=== PATIENT | female | born 2000 | race Caucasian/White ===

== ENCOUNTER 2018-06-19 14:28 | Emergency (ER) | payer OTHER ==
[2018-06-19 15:22] VITALS: BP 107/67
[2018-06-19] MEDS ORDERED: Ketorolac INJ* 60 MG/2 ML VIAL IM ONE (15:47)
--- NOTE | 2018-06-19 15:57 | ED ---
Headache - HPI Summary HPI Summary: patient developed headache several days ago and symtoms have been unrelieved with motrin, patient has persistent nausea with the headache, and photophobia - History Of Current Complaint Chief Complaint: UCGeneralIllness Stated Complaint: MIGRAINES,EYE/NECK/ARM PAIN Time Seen by Provider: 06/19/18 15:45 Hx Last Menstrual Period: 06/12/18 Onset/Duration: Gradual Onset, Started days ago Initially Headache Was: Moderate Currently Pain Is: Current Pain Scale(0-10)=, Moderate Timing: Constant, Hours Character: Sharp Location of Headache: Diffuse, Frontal Aggravating Factor: Bright Lights Allevating Factors: Rest Associated Signs And Symptoms: Nausea, Visual Changes - Allergies/Home Medications Allergies/Adverse Reactions: Allergies Allergy/AdvReac Type Severity Reaction Status Date / Time Penicillins Allergy Unknown Verified 06/19/18 15:22 Reaction Details Home Medications: Home Medications Ibuprofen TAB* [Motrin TAB* 600 MG] 600 mg PO Q8H PRN 06/19/18 [History Confirmed 06/19/18] PMH/Surg Hx/FS Hx/Imm Hx Previously Healthy: Yes Infectious Disease History: No Infectious Disease History: Denies: Traveled Outside the [place] in Last 30 Days - Social History Alcohol Use: Occasionally Substance Use Type: Reports: Marijuana Smoking Status (MU): Never Smoked Tobacco Review of Systems Constitutional: Negative Positive: Photophobia ENT: Negative Cardiovascular: Negative Respiratory: Negative Gastrointestinal: Negative Genitourinary: Negative Musculoskeletal: Negative Skin: Negative Neurological: Other Positive: Paresthesia Psychological: Normal All Other Systems Reviewed And Are Negative: Yes Physical Exam Triage Information Reviewed: Yes Vital Signs On Initial Exam: Initial Vitals Temp Pulse Resp BP Pulse Ox 37.4 C 69 16 107/67 100 06/19/18 15:11 06/19/18 15:11 06/19/18 15:11 06/19/18 15:11 06/19/18 15:11 Vital Signs Reviewed: Yes Appearance: Positive: Well-Appearing Skin: Positive: Warm Head/Face: Positive: Normal Head/Face Inspection Eyes: Positive: Normal, Other: - normal optic fundi ENT: Positive: Normal ENT inspection Neck: Positive: Supple Respiratory/Lung Sounds: Positive: Clear to Auscultation Cardiovascular: Positive: Normal Abdomen Description: Positive: Nontender Bowel Sounds: Positive: Present Musculoskeletal: Positive: Normal Neurological: Positive: Normal, Sensory/Motor Intact, Alert, Oriented to Person Place, Time, CN Intact II-III, Reflexes Intact, Normal Gait, Finger to Nose Psychiatric: Positive: Normal - Alistair Coma Scale Best Motor Response: 6 - Obeys Commands Best Verbal Response: 5 - Oriented Diagnostics - Vital Signs Vital Signs Temp Pulse Resp BP Pulse Ox 06/19/18 15:11 37.4 C 69 16 107/67 100 - Laboratory Lab Statement: Any lab studies that have been ordered have been reviewed, and results considered in the medical decision making process. Headache Course/Dx - Diagnoses Provider Diagnoses: Migraine Discharge - Sign-Out/Discharge Documenting (check all that apply): Patient Departure - discharged to home All imaging exams completed and their final reports reviewed: Yes - Discharge Plan Condition: Good Disposition: HOME Prescriptions: SUMAtriptan TAB* [Imitrex TAB*] 100 mg PO SEE INSTRUCTIONS #12 tab Patient Education Materials: Migraine Headache (ED) Forms: *Work Release Referrals: No Primary Care Phys,NOPCP [Primary Care Provider] - - Billing Disposition and Condition Condition: GOOD Disposition: Home
--- NOTE | 2018-06-19 16:12 | RAD ---
Indication: Recurrent headaches. CT of the brain performed without IV contrast. Ventricular structures are midline. No midline shift is noted. The extra-axial spaces are unremarkable. There is no evidence of intracranial mass or hemorrhage. No other high or low density lesions are identified. Mastoid air cells and paranasal sinuses are otherwise unremarkable. IMPRESSION: There is no intracranial mass or hemorrhage noted.
== END 2018-06-19 17:03 | disposition home or self-care (01) ==
LOC: UCCORT 14:28
DX: G43.909 Migraine, unspecified, not intractable, without status migrainosus (principal); Z88.0 Allergy status to penicillin
CPT/HCPCS: 70450; 93005; 96372; 99202; G0463; J1885

== ENCOUNTER 2018-06-29 11:53 | Emergency (ER) | payer OTHER ==
[2018-06-29 12:16] VITALS: BP 129/58
--- NOTE | 2018-06-29 12:38 | UC ---
UC General HPI - HPI Summary HPI Summary: Patient is complaining of sore throat for the past 3 days. She also has a cough and some fatigue. A close friend was just diagnosed with mono and patient is concerned she may have mono as well. She denies any associated fever or abdominal pain. - History of Current Complaint Chief Complaint: UCGeneralIllness Stated Complaint: SORE THROAT Time Seen by Provider: 06/29/18 12:25 Hx Obtained From: Patient Hx Last Menstrual Period: 06/12/18 Onset/Duration: Gradual Onset Timing: Constant Pain Intensity: 2 Alleviating: Nothing Associated Signs & Symptoms: Positive: Cough. Negative: Abdominal Pain, Fever - Allergy/Home Medications Allergies/Adverse Reactions: Allergies Allergy/AdvReac Type Severity Reaction Status Date / Time Penicillins Allergy Unknown Verified 06/29/18 12:16 Reaction Details PMH/Surg Hx/FS Hx/Imm Hx Neurological History: Migraine - Surgical History Surgical History: None - Family History Known Family History: Positive: None - Social History Occupation: Student Lives: Dormitory/Roommates Alcohol Use: Occasionally Substance Use Type: Marijuana Smoking Status (MU): Never Smoked Tobacco - Immunization History Hx Tetanus, Diphtheria Vaccination: Yes Vaccination Up to Date: Yes Review of Systems Constitutional: Fatigue Skin: Negative Eyes: Negative ENT: Sore Throat Respiratory: Cough Cardiovascular: Negative Gastrointestinal: Negative Genitourinary: Negative Motor: Negative Neurovascular: Negative Musculoskeletal: Negative Neurological: Negative Psychological: Negative Is Patient Immunocompromised?: No All Other Systems Reviewed And Are Negative: Yes Physical Exam Triage Information Reviewed: Yes Appearance: Well-Appearing Vital Signs: Initial Vital Signs Temp 98.6 F 06/29/18 12:11 Pulse 97 06/29/18 12:11 Resp 18 06/29/18 12:11 BP 129/58 06/29/18 12:11 Pulse Ox 100 06/29/18 12:11 Eyes: Positive: Conjunctiva Clear ENT: Positive: Pharyngeal erythema, TMs normal, Uvula midline. Negative: Nasal congestion, Nasal drainage, Trismus, Muffled voice, Hoarse voice Neck: Positive: Supple, Nontender, Enlarged Nodes @ - Peritonsillar Respiratory: Positive: Lungs clear, Normal breath sounds Cardiovascular: Positive: RRR, No Murmur Abdomen Description: Positive: Nontender, No Organomegaly, Soft Bowel Sounds: Positive: Present Musculoskeletal: Positive: ROM Intact Neurological: Positive: Alert Psychological: Positive: Age Appropriate Behavior Skin Exam: Normal Diagnostics - Laboratory ABG Interpretation: CBC WITH DIFF AND MONO ARE PENDING. RAPID STREP=NEG Course/Dx - Course Course Of Treatment: RAPID STREP=NEG, R/O MONO. WILL RESTRICT SPORT UNTIL CLEARED/MONO EXCLUDED. PT ADVISED OF RISK FOR FALSE NEG MONO TEST EARLY ON IN THE ILLNESS. - Differential Dx - Multi-Symptom Provider Diagnoses: PHARYNGITIS. FATIGUE Discharge - Sign-Out/Discharge Documenting (check all that apply): Patient Departure All imaging exams completed and their final reports reviewed: No Studies - Discharge Plan Condition: Stable Disposition: HOME Patient Education Materials: Mononucleosis (ED), Fatigue (ED) Forms: *Physical Education Release Referrals: [facility] [Outside] - 5 Days Additional Instructions: DIAGNOSIS: PHARYNGITIS, FATIGUE, RULE OUT MONO - Billing Disposition and Condition Condition: STABLE Disposition: Home - Attestation Statements Provider Attestation: I was available for consult. This patient was seen by the KLEBER. The patient was not presented to, seen by, or examined by me. -Shima
[2018-06-30 14:26] LABS: ABS Basophils 0 10^3/ul (0-0.2); ABS Eosinophils 0.1 10^3/ul (0-0.6); ABS Lymphocytes 1.4 10^3/ul (1.0-4.8); ABS Monocytes 0.7 10^3/ul (0-0.8); ABS Nucleated RBC 0 10^3/ul; Hematocrit 39 % (35-47); Hemoglobin 13.3 g/dl (12.0-16.0); Lymphocyte % 15.4 % (25-47); Mean Corpuscular HGB Conc 34 g/dl (31-36); Mean Corpuscular Hemoglobin 30 pg (27-31); Mean Corpuscular Volume 88 fL (80-97); Mean Platelet Volume 9.3 um3 (7.4-10.4); Nucleated Red Blood Cells % 0.5; Platelet Count 179 10^3/ul (150-450); Red Blood Count 4.45 10^6/ul (4.00-5.40); Red Cell Distribution Width 13 % (10.5-15); White Blood Count 9.2 10^3/ul (3.5-10.8)
== END 2018-06-29 13:22 | disposition home or self-care (01) ==
LOC: UCCORT 11:53
DX: J02.9 Acute pharyngitis, unspecified (principal); R53.83 Other fatigue; Z88.0 Allergy status to penicillin
CPT/HCPCS: 36415; 85025; 86308; 86664; 86665; 87651; 99211; G0463

== ENCOUNTER 2018-12-15 16:55 | Emergency (ER) | payer OTHER ==
[2018-12-15 17:10] VITALS: BP 118/76
--- NOTE | 2018-12-15 17:31 | UC ---
Abdominal Pain Female HPI - HPI Summary HPI Summary: Patient is a 18 year old woman , who present today to the urgent care with left lower abdominal pain for past 2 weeks. Pain is localized in the left lower quadrant and also reports some epigastric pain. There is associated nausea and vomiting. She reports having emesis almost every day in the morning, it's yellow bilious and not bloody. Has some cough as well Denies any new food, Fevers or chills. She also reports having constipation, last bowel movement was yesterday. Denies any blood in stools. No urinary or vaginal symptoms. Last menstrual period started today She tolerates by mouth well but that increases her pain. She also reports having some hot flashes and palpitations intermittently some associated to shortness of breath but denies any chest pain. No shortness of breath or chest pain right now . She has tried [id number] Tums without much relief - History of Current Complaint Chief Complaint: UCAbdominalPain Stated Complaint: SOB,LT SIDED ABD PAIN X 2 WEEKS Time Seen by Provider: 12/15/18 17:27 Hx Obtained From: Patient Hx Last Menstrual Period: 12/15/18 ?: No Pain Intensity: 6 Allergies/Adverse Reactions: Allergies Allergy/AdvReac Type Severity Reaction Status Date / Time Penicillins Allergy Rash Verified 12/15/18 17:10 Home Medications: Home Medications Lactase [Lactaid Fast Act] 9,000 unit PO DAILY 12/15/18 [History Confirmed 12/15] PMH/Surg Hx/FS Hx/Imm Hx - Additional Past Medical History Additional PMH: Migraine on Imitrex Previously Healthy: Yes - Surgical History Surgical History: None - Family History Known Family History: Positive: None - Social History Alcohol Use: Occasionally Substance Use Type: Marijuana Substance Use Comment - Amount & Last Used: daily Smoking Status (MU): Never Smoked Tobacco - Immunization History Hx Tetanus, Diphtheria Vaccination: Yes Vaccination Up to Date: Yes Review of Systems All Other Systems Reviewed And Are Negative: Yes Constitutional: Positive: Negative Skin: Positive: Negative Eyes: Positive: Negative ENT: Positive: Negative Respiratory: Positive: Cough Cardiovascular: Positive: Palpitations Gastrointestinal: Positive: Abdominal Pain, Vomiting, Other - Constipation Genitourinary: Positive: Negative Motor: Positive: Negative Neurovascular: Positive: Negative Musculoskeletal: Positive: Negative Neurological: Positive: Negative Psychological: Positive: Negative Is Patient Immunocompromised?: No Physical Exam - Summary Physical Exam Summary: Physical Exam: Const: Appears well. No signs of apparent distress present. Alert and oriented x 3. Musculo: Walks with a normal gait. Head/Face: Atraumatic, normocephalic on inspection. Eyes: EOMI and PERRLA in both eyes. Conjunctivae clear. No discharge noted ENT: Hearing normal Respiratory: Respirations are unlabored. Lungs clear to auscultation bilaterally, no wheezing , rhonchi or rales noted . CVS: Regular rate and Rhythm, S1S2 normal , no murmurs identified. Extremities: Peripheral circulation is grossly normal. Pulses 2+ Abdomen : Soft , there is tenderness to palpation noted in the left lower quadrant and also in the epigastric area , nondistended , Bowel sounds present and appear to be slightly hyperkinetic. No guarding , rebound tenderness or rigidity noted. Skin: No lesions or rash located on the upper extremities or on the lower extremities. Neuro: Cranial nerves II to XII intact, motor and sensory intact. DTR Intact bilaterally. Mood is normal. Affect is normal. Triage Information Reviewed: Yes Vital Signs: Initial Vital Signs Temp 98.6 F 12/15/18 16:59 Pulse 80 12/15/18 16:59 Resp 16 12/15/18 16:59 BP 118/76 12/15/18 16:59 Pulse Ox 100 12/15/18 16:59 Vital Signs Reviewed: Yes Abd Pain Female Course/Dx - Course Course Of Treatment: During the visit today, we discussed the findings which appeared to be consistent with gastroenteritis, possibility of an ovarian cyst on the left side cannot be completely ruled out. She was given 1 dose of Zofran and famotidine here. Patient needs additional testing, thus ER transfer advised and patient agrees. Report called to the ER provider (Dr. Radha MD) at [facility], advised provider of the history, physical examination , and duration of illness so far and the need imaging. Patient expressed understanding . Her friend will drive her in a private car. Vitals stable at the time of transfer - Differential Dx/Diagnosis Provider Diagnosis: Gastroenteritis, Ovarian cyst Discharge - Sign-Out/Discharge Documenting (check all that apply): Patient Departure All imaging exams completed and their final reports reviewed: No Studies - Discharge Plan Condition: Stable Disposition: HOME-RECOMMEND TO ED Patient Education Materials: Ovarian Cyst (ED), Gastroenteritis (ED) Referrals: No Primary Care Phys,NOPCP [Primary Care Provider] - Additional Instructions: Patient needs additional testing, thus ER transfer advised and patient agrees. Report called to the ER provider (Dr. Radha MD)at [facility] - Billing Disposition and Condition Condition: STABLE Disposition: Home-Recommend to ED
[2018-12-15] MEDS ORDERED: Famotidine TAB* 20 MG PO ONE (18:02)
[2018-12-15] MEDS: Ondansetron ODT TAB* 4 MG PO ONE (18:19)
== END 2018-12-15 18:23 | disposition home health service (06) ==
LOC: UCCORT 16:55
DX: K52.9 Noninfective gastroenteritis and colitis, unspecified (principal); N83.209 Unspecified ovarian cyst, unspecified side; Z88.0 Allergy status to penicillin
CPT/HCPCS: 99212; A9270-GY; G0463

== ENCOUNTER 2018-12-15 19:06 | Emergency (ER) | payer OTHER ==
--- NOTE | 2018-12-15 20:33 | ED ---
Abdominal Pain/Female - HPI Summary HPI Summary: This patient is a 18 year old F driven via private car by her partner presenting to [facility] with a chief complaint of LLQ pain since two weeks ago. She says it started with SOB. She states she reports an constant dull LLQ pain, nausea and vomited every morning when she wakes up. She denies dysuria. She states her pain worsens after she urinates. She is currently not taking any medication. She rates her pain 6/10 in severity. Eating makes her pain worse and induces vomiting. She took ibuprofen a couple days ago and it did not help. Her LNMP started today. She states she is not taking control. She also reports intermittent hot flashes. She reports black spots in her vomit but thinks it is likely due to the coffee that she drinks every morning. Her last BM was yesterday and states it was diarrhea. Her last normal BM was weeks ago. She denies FHx of ovarian cyst. Patient is a daily marijuana user and used this morning. Patient declines pain medication at this time. Patient was passing flatus. Her blood pressure in room is 116/74. - History of Current Complaint Chief Complaint: EDAbdPain Stated Complaint: STOMACH PAINS PER PT Hx Obtained From: Patient, Family/Advertising Designer - Partner Hx Last Menstrual Period: 12/15/18 Onset/Duration: Lasting Weeks, Still Present Timing: Constant Severity Initially: Moderate Severity Currently: Moderate Pain Intensity: 6 Pain Scale Used: 0-10 Numeric Location: Discrete At: LLQ Character: Dull Aggravating Factor(s): Food, Movement Associated Signs and Symptoms: Positive: Nausea, Vomiting Allergies/Adverse Reactions: Allergies Allergy/AdvReac Type Severity Reaction Status Date / Time Penicillins Allergy Rash Verified 12/15/18 19:12 PMH/Surg Hx/FS Hx/Imm Hx Endocrine/Hematology History: Denies: Hx Diabetes Cardiovascular History: Denies: Hx Coronary Artery Disease Respiratory History: Denies: Hx Asthma Infectious Disease History: No Infectious Disease History: Denies: Traveled Outside the [place] in Last 30 Days - Family History Known Family History: Positive: Cardiac Disease - AFIB father Negative: Hypertension, Diabetes - Social History Alcohol Use: Occasionally Substance Use Type: Reports: Marijuana - Daily Substance Use Comment - Amount & Last Used: daily Smoking Status (MU): Never Smoked Tobacco Review of Systems Constitutional: Other - Intermittent hot flashes Positive: Shortness Of Breath Positive: Abdominal Pain, Vomiting, Diarrhea, Nausea Negative: dysuria All Other Systems Reviewed And Are Negative: Yes Physical Exam - Summary Physical Exam Summary: Appearance: Ill-appearing, moderate pain distress, well-nourished Skin: Warm, color reflects adequate perfusion, dry Head: Normal Head/Face inspection, atraumatic Eyes: Conjunctiva clear ENT: Normal inspection Neck: Supple, no nodes, no JVD Respiratory: Lungs clear, normal breath sounds, no respiratory distress Cardio: RRR, No murmur, pulses normal, brisk capillary refill Abdomen: Soft, minimal tenderness LLQ. no rebound, no guarding, no masses, non- distended Bowel sounds: Present Musculoskeletal: Strength Intact/ROM intact, no calf tenderness, no edema. Psychological: Normal Neuro: Alert, muscle tone normal, no focal deficit Rectal: Bunch Trimmer Mold Shelly present. No external hemorrhoids, non-painful exam. Hard brown stool, no blood. Triage Information Reviewed: Yes Vital Signs On Initial Exam: Initial Vitals Temp Pulse Resp BP Pulse Ox 98.4 F 72 18 122/74 98 12/15/18 19:11 12/15/18 19:11 12/15/18 19:11 12/15/18 19:11 12/15/18 19:11 Vital Signs Reviewed: Yes Diagnostics - Vital Signs Vital Signs Temp Pulse Resp BP Pulse Ox 12/15/18 19:11 98.4 F 72 18 122/74 98 - Laboratory Lab Statement: Any lab studies that have been ordered have been reviewed, and results considered in the medical decision making process. - Ultrasound No standard instances Ultrasound Interpretation Completed By: Radiologist Summary of Ultrasound Findings: Pelvic U/S: Sonographically normal uterus and ovaries. ED Provider has reviewed this report. Re-Evaluation - Re-Evaluation First Eval Re-Evaluation Time: 21:52 Abdominal Pain Fem Course/Dx - Course Course Of Treatment: This patient is a 18 year old F driven via private car by her partner presenting to [facility] with a chief complaint of LLQ pain since two weeks ago. Pt medications reviewed this visit. Nurses note reviewed. Allergies noted. Bloodwork and urinalysis revealed Magnesium 1.7 L, Total Bilirubin 1.20 H, Amylase 22L, Ur Specific [place] 1.009 :, Urine Blood 3+ A, Ur Squamous Epith Cells Present A, Urine Bacteria 1+ A. Dr. Smiley discussed risks of radiation exposure with patient and performed intial exam to prevent exposure. Pelvic U/S revealed sonographically normal uterus and ovaries. Abdomen/KUB revealed large amount of stool, no air fluid levels, no urolithiasis or nephrolithiasis. - Diagnoses Provider Diagnoses: LLQ abdominal pain, Vomiting, Microscopic hematuria, Hypomagnesemia, Gilbert's syndrome Discharge - Discharge Plan Forms: *School Release Referrals: [facility] [Outside] - Attestation Statements Document Initiated by Scribe: Yes Documenting Scribe: Joseph Myers Provider For Whom Scribe is Documenting (Include Credential): Maria Guadalupe Smiley MD Scribe Attestation: Joseph Love, scribed for Maria Guadalupe Smiley MD on 12/15/18 at 205. Status of Scribe Document: Ready
[2018-12-15] MEDS ORDERED: NS 0.9% 1000 ML** 2,000 ML IV ONE (20:44)
[2018-12-15 20:59] LABS: ABS Basophils 0 10^3/ul (0-0.2); ABS Eosinophils 0.2 10^3/ul (0-0.6); ABS Monocytes 0.5 10^3/ul (0-0.8); ABS Neutrophils 6.1 10^3/ul (1.5-7.7); ABS Nucleated RBC 0 10^3/ul; Hematocrit 41 % (35-47); Hemoglobin 13.9 g/dl (12.0-16.0); Lymphocyte % 23.2 %; Mean Corpuscular HGB Conc 34 g/dl (31-36); Mean Corpuscular Hemoglobin 30 pg (27-31); Mean Corpuscular Volume 88 fL (80-97); Mean Platelet Volume 7.7 fL (7.4-10.4); Nucleated Red Blood Cells % 0.1; Platelet Count 233 10^3/ul (150-450); Red Blood Count 4.66 10^6/ul (4.00-5.40); Red Cell Distribution Width 12 % (10.5-15); White Blood Count 8.8 10^3/ul (3.5-10.8)
[2018-12-15 21:02] LABS: Urine Appearance Cloudy; Urine Bacteria 1+ (Absent); Urine Bilirubin Negative (Negative); Urine Blood 3+ (Negative); Urine Color Yellow; Urine Glucose Negative (Negative); Urine Ketones Negative (Negative); Urine Nitrite Negative (Negative); Urine Protein Negative (Negative); Urine Red Blood Cell Trace(0-2/hpf) (Absent); Urine Specific Gravity 1.009 (1.010-1.030); Urine Squamous Epithelial Cell Present (Absent); Urine Urobilinogen Negative (Negative); Urine White Blood Cell Trace(0-5/hpf) (Absent)
[2018-12-15 21:05] LABS: Activated Partial Thrombo Time 33.9 seconds (26.0-36.3); INR 0.91 (0.77-1.02)
[2018-12-15 21:14] LABS: ALT 8 U/L (7-52); AST 13 U/L (13-39); Albumin 4.4 g/dL (3.2-5.2); Albumin/Globulin Ratio 1.8 (1-3); Alkaline Phosphatase 51 U/L (34-104); Amylase 22 U/L (29-103); Anion Gap 6 mmol/L (2-11); BUN/Creatinine Ratio 9.4 (8-20); Blood Urea Nitrogen 8 mg/dL (6-24); C Reactive Protein < 1.00 mg/L (<8.01); CO2 Carbon Dioxide 27 mmol/L (22-32); Calcium 9.3 mg/dL (8.6-10.3); Chloride 106 mmol/L (101-111); EGFR African American 103.2 (>60); EGFR Non-African American 85.3 (>60); Globulin 2.5 g/dL (2-4); Glucose 86 mg/dL (70-100); Magnesium 1.7 mg/dL (1.9-2.7); Potassium 4.2 mmol/L (3.5-5.0); Sodium 139 mmol/L (135-145); Total Protein 6.9 g/dL (6.4-8.9)
[2018-12-15 21:20] LABS: HCG Pregnancy < 0.60 mIU/mL
[2018-12-15 21:54] LABS: Barbiturates Urine Screen None Detected (None Detect); Benzodiazepine Urine Screen None Detected (None Detect); Urine Cannabinoids Screen Presumptive Positive (None Detect)
[2018-12-15] MEDS ORDERED: Magnesium Oxide TAB* 400 MG PO ONE (22:02)
[2018-12-15] MEDS ORDERED: diPHENhydraMINE IV* 50 MG/ML 1 ml VIAL (BENADRYL) IV ONE (22:37)
[2018-12-15] MEDS ORDERED: Ketorolac INJ* 30 MG/ML 1 ML VIAL IV PUSH ONE (22:40)
[2018-12-15] MEDS ORDERED: Metoclopramide IV* 5 MG/ML 2 ML VIAL IV ONE (22:40)
[2018-12-15] MEDS ORDERED: Magnesium Sulfate 1 GM IV* 1 GM/100 ML BAG IV ONE (22:53)
[2018-12-15 23:14] VITALS: BP 0/0
== END 2018-12-15 23:13 | disposition home or self-care (01) ==
LOC: ED 19:06
DX: R10.32 Left lower quadrant pain (principal); R11.10 Vomiting, unspecified; R31.29 Other microscopic hematuria; E83.42 Hypomagnesemia; E80.4 Gilbert syndrome
CPT/HCPCS: 36415; 74018; 76856; 80053; 80307; 81003; 81015; 82150; 82272; 83605; 83690; 83735; 84702; 85025; 85610; 85730; 86140; 87086; 96360; 96361; 99282

== ENCOUNTER 2019-07-07 19:44 | Emergency (ER) | payer OTHER ==
[2019-07-07 19:58] VITALS: BP 115/70
[2019-07-07] MEDS ORDERED: Ondansetron ODT TAB* 4 MG PO ONE (20:12)
[2019-07-07] MEDS ORDERED: Ketorolac *IM* INJ* 60 MG/2 ML VIAL IM ONE (20:13)
--- NOTE | 2019-07-07 20:17 | UC ---
Headache HPI - HPI Summary HPI Summary: 18-year-old female comes in with a chief complaint of migraine. Started several hours ago. She's had the same type of migraines ever since she was in seventh grade. She the pain is worse behind the left eye and it does cause some vision change the left eye which is typical with her migraines. She also gets nauseous and vomits. Usually she can take ibuprofen and rest in a dark room and get better however this time she took the ibuprofen and threw it up. The headache continues the nausea vomiting continues. She also gets bilateral hand numbness and hyperventilation. No fevers no chills. Has not been ill with infection. - History Of Current Complaint Chief Complaint: UCHeadache Stated Complaint: MIGRAINE, ARM PAIN Time Seen by Provider: 07/07/19 20:05 Hx Last Menstrual Period: 2 weeks ago Pain Intensity: 9 - Allergies/Home Medications Allergies/Adverse Reactions: Allergies Allergy/AdvReac Type Severity Reaction Status Date / Time Penicillins Allergy Rash Verified 07/07/19 19:47 Home Medications: Home Medications NK [No Home Medications Reported] 07/07/19 [History Confirmed 07/07/19] PMH/Surg Hx/FS Hx/Imm Hx Previously Healthy: Yes Neurological History: Migraine - Surgical History Surgical History: None - Family History Known Family History: Positive: None, Cardiac Disease - AFIB father Negative: Hypertension, Diabetes - Social History Alcohol Use: None Substance Use Type: None Substance Use Comment - Amount & Last Used: daily Smoking Status (MU): Never Smoked Tobacco - Immunization History Hx Tetanus, Diphtheria Vaccination: Yes Vaccination Up to Date: Yes Review of Systems All Other Systems Reviewed And Are Negative: Yes Constitutional: Positive: Other - see hpi Skin: Positive: Negative Eyes: Positive: Other - see hpi ENT: Positive: Negative Respiratory: Positive: Negative Cardiovascular: Positive: Negative Gastrointestinal: Positive: Vomiting, Nausea Motor: Positive: Negative Neurovascular: Positive: Negative Musculoskeletal: Positive: Negative Neurological: Positive: Headache Psychological: Positive: Negative Is Patient Immunocompromised?: No Physical Exam Triage Information Reviewed: Yes Appearance: Well-Nourished, Ill-Appearing - mild, Pain Distress - mild Vital Signs: Initial Vital Signs Temp 97.2 F 07/07/19 19:48 Pulse 100 07/07/19 19:48 Resp 18 07/07/19 19:48 BP 115/70 07/07/19 19:48 Pulse Ox 100 07/07/19 19:48 Vital Signs Reviewed: Yes Eye Exam: Normal Eyes: Positive: Conjunctiva Clear ENT: Positive: Pharynx normal Neck: Positive: Supple Respiratory: Positive: No respiratory distress Musculoskeletal: Positive: Strength Intact, ROM Intact Neurological: Positive: Alert, Muscle Tone Normal Psychological: Positive: Age Appropriate Behavior Skin Exam: Normal Headache Course/Dx - Differential Dx/Diagnosis Provider Diagnosis: Migraine Discharge ED - Sign-Out/Discharge Documenting (check all that apply): Patient Departure All imaging exams completed and their final reports reviewed: No Studies - Discharge Plan Condition: Stable Disposition: HOME-RECOMMEND TO ED Patient Education Materials: Migraine Headache (ED) [facility]] Kaiser Pickard MD [Medical Doctor] - Additional Instructions: GO DIRECTLY TO THE EMERGENCY DEPARTMENT FOR FURTHER EVALUATION AND CARE. - Billing Disposition and Condition Condition: STABLE Disposition: Home-Recommend to ED
[2019-07-07] MEDS ORDERED: NS 0.9% 1000 ML** 1,000 ML IV ONE ×2 (20:56→21:35)
== END 2019-07-07 22:28 | disposition home health service (06) ==
LOC: UCCORT 19:44
DX: G43.909 Migraine, unspecified, not intractable, without status migrainosus (principal); Z88.0 Allergy status to penicillin
CPT/HCPCS: 96360; 96372; 99212; A9270-GY; G0463; J1885